=== PATIENT | male | born 1940 | race Caucasian/White ===

== ENCOUNTER 2018-05-16 16:00 | Emergency (ER) | payer MEDICARE ==
[2018-05-16] MEDS ORDERED: NS 0.9% 1000 ML* 1,000 ML IV ONE (16:34)
--- NOTE | 2018-05-16 16:56 | ED ---
Syncope/Near Syncope - HPI Summary HPI Summary: This patient is a 78 year old M presenting to [facility] with a chief complaint of syncope since 1529. Pt endorses heavy exertion up and down a slope carrying a lot of weight. Pt endorses he was hot and sweaty. Sat down on bench, and was then syncopal. Denies AMS, CP. Pt claims he woke up quickly s/p syncope. Denies PMHx DM, PMHx HTN, SHx stent. Pt is a former smoker, quit 30 years ago. - History Of Current Complaint Chief Complaint: EDSyncope Time Seen by Provider: 05/16/18 16:35 Hx Obtained From: Patient Onset/Duration: Sudden Onset, Resolved Context: Unwitnessed, Loss Of Consciousness Activity At Onset: At Rest - but s/p heavy exertion Associated Head Trauma: No Aggravating Factor(s): Exertion Alleviating Factor(s): Spontaneous Resolution Associated Signs And Symptoms: Diaphoresis, Lightheadedness Frequency: Episodes x___ - 1 - Allergies/Home Medications Allergies/Adverse Reactions: Allergies Allergy/AdvReac Type Severity Reaction Status Date / Time No Known Allergies Allergy Verified 05/16/18 16:30 PMH/Surg Hx/FS Hx/Imm Hx Endocrine/Hematology History: Denies: Hx Diabetes Cardiovascular History: Reports: Hx Hypertension Sensory History: Denies: Hx Legally Blind, Hx Deafness Opthamlomology History: Denies: Hx Legally Blind EENT History: Denies: Hx Deafness - Surgical History Surgery Procedure, Year, and Place: stent Infectious Disease History: No Infectious Disease History: Denies: Traveled Outside the [place] in Last 30 Days - Family History Known Family History: Negative: Blood Disorder - Social History Occupation: Retired Lives: With Family Alcohol Use: Occasionally Hx Substance Use: No Substance Use Type: Reports: None Smoking Status (MU): Former Smoker Review of Systems Positive: Chills Negative: Chest Pain Negative: Shortness Of Breath Positive: Nausea. Negative: Abdominal Pain, Vomiting Positive: Weakness, Syncope. 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 Head/face: normal Eyes: EOMI, MEHUL ENT: normal, mucous membranes moist Neck: supple, non-tender Respiratory: CTA, breath sounds present Cardiovascular: RRR, pulses symmetrical Abdomen: non-tender, soft Bowel Sounds: present Musculoskeletal: normal, strength/ROM intact, no peripheral edema Neuro: normal, sensory motor intact, A&Ox3 Triage Information Reviewed: Yes Vital Signs On Initial Exam: Initial Vitals Temp Pulse Resp BP Pulse Ox 96.3 F 65 28 99/59 96 05/16/18 16:03 05/16/18 16:03 05/16/18 16:03 05/16/18 16:03 05/16/18 16:03 Vital Signs Reviewed: Yes Diagnostics - Vital Signs Vital Signs Temp Pulse Resp BP Pulse Ox 05/16/18 16:03 96.3 F 65 28 99/59 96 - Laboratory Result Diagrams: 05/16/18 16:53 05/16/18 16:53 Lab Statement: Any lab studies that have been ordered have been reviewed, and results considered in the medical decision making process. - EKG 1641 Cardiac Rate: NL - 66 EKG Rhythm: 1st Degree HB ST Segment: Non-Specific - flattening Ectopy: None EKG Interpretation: nl axis Course/Dx Course Of Treatment: Patient with history of cardiac stent with heat-related illness after exerting himself for quite some time in the very hot day. Feeling much better on arrival here. He was hydrated with 2 L of IV fluids with resolution of symptoms. He does have a creatinine of 1.47 but an unknown baseline. His CPK is only modestly elevated. He has no muscle pains or nausea. He is discharged in good condition to follow-up with his doctor. He' ll avoid the sun for the next several days. - Diagnoses Provider Diagnoses: Heat syncope, Dehydration, Renal insufficiency Discharge - Sign-Out/Discharge Documenting (check all that apply): Patient Departure - Discharge Plan Condition: Improved Disposition: HOME Patient Education Materials: Dehydration (ED), Syncope (ED) Referrals: No Primary Care Phys,NOPCP [Primary Care Provider] - Additional Instructions: Hydrate well. Avoid the heat and the sun for several days. Call your doctor for follow-up on Friday and return home. Return if worse, new symptoms, chest pains, worse or other concerns. Avoid ibuprofen and Aleve. Use Tylenol for aches or pains. - Billing Disposition and Condition Condition: IMPROVED Disposition: Home
[2018-05-16 16:59] LABS: ABS Basophils 0.1 10^3/ul (0-0.2); ABS Eosinophils 0.1 10^3/ul (0-0.6); ABS Lymphocytes 1.8 10^3/ul (1.0-4.8); ABS Monocytes 0.6 10^3/ul (0-0.8); ABS Neutrophils 5.5 10^3/ul (1.5-7.7); ABS Nucleated RBC 0 10^3/ul; Eosinophil % 0.7 % (0-6); Hematocrit 38 % (42-52); Lymphocyte % 22.5 % (25-47); Mean Corpuscular HGB Conc 34 g/dl (31-36); Mean Corpuscular Hemoglobin 30 pg (27-31); Mean Corpuscular Volume 89 fL (80-94); Mean Platelet Volume 7.6 um3 (7.4-10.4); Nucleated Red Blood Cells % 0; Platelet Count 237 10^3/ul (150-450); Red Blood Count 4.31 10^6/ul (4.00-5.40); Red Cell Distribution Width 14 % (10.5-15); White Blood Count 8.1 10^3/ul (3.5-10.8)
[2018-05-16 17:16] LABS: EGFR Non-African American 48.1 (>60)
[2018-05-16 18:20] VITALS: BP 137/99
== END 2018-05-16 18:19 | disposition home or self-care (01) ==
LOC: ED 16:00
DX: T67.1XXA Heat syncope, initial encounter (principal); X58.XXXA Exposure to other specified factors, initial encounter; Y92.9 Unspecified place or not applicable; E86.0 Dehydration; N28.9 Disorder of kidney and ureter, unspecified; Z87.891 Personal history of nicotine dependence
CPT/HCPCS: 36415; 80048; 82550; 84484; 85025; 93005; 96360; 99283